=== PATIENT | male | born 1955 | race Caucasian/White ===

== ENCOUNTER 2018-02-17 13:13 | Inpatient (IN) ==
[2018-02-17] MEDS ORDERED: Sod Chloride 0.9% Inj 1,000 ML IV.SIG SCH (14:15)
[2018-02-17 14:37] LABS: Baso # (Auto) 0.1 th/mm3 (0.0-0.2); Baso % (Auto) 0.7 % (0.0-2.0); Eos # (Auto) 0.3 th/mm3 (0.0-0.4); Eos % (Auto) 1.8 % (0.0-4.0); Hematocrit 44.7 % (39.0-51.0); Lymph # (Auto) 2.2 th/mm3 (1.0-4.8); Lymph % (Auto) 15.5 % (9.0-44.0); Mean Corpuscular HGB Conc 33.6 % (32.0-36.0); Mean Corpuscular Hemoglobin 30.4 pg (27.0-34.0); Mean Corpuscular Volume 90.3 fL (80.0-100.0); Mean Platelet Volume 8.8 fL (7.0-11.0); Mono # (Auto) 1.1 th/mm3 (0.0-0.9); Neut # (Auto) 10.5 th/mm3 (1.8-7.7); Platelet Count 265 th/mm3 (150-450); Red Blood Count 4.94 mil/mm3 (4.50-5.90); Red Cell Distribution Width 13.3 % (11.6-17.2); White Blood Count 14.2 th/mm3 (4.0-11.0)
[2018-02-17 14:50] LABS: Prothrombin Time 10.5 sec (9.8-11.6)
--- NOTE | 2018-02-17 14:54 | ED ---
HPI General Chief complaint: Skin/Abscess/Foreign Body Stated complaint: Post Op Complication Time Seen by Provider: 02/17/18 14:06 Source: patient Mode of arrival: ambulatory Limitations: no limitations History of Present Illness HPI narrative: 62-year-old male with a history of hypertension, chronic headaches presents to the emergency department for evaluation of swelling to the left neck that has worsened since Sunday. Patient says he had a squamous cell carcinoma lesion removed from his left neck Sunday morning and started developing swelling that day. Says today the swelling is increased and his noticed his left ear was also swelling. There were advised to go to a walk-in clinic in the walk-in clinic advised to come to the emergency department for further evaluation. He denies fevers, chills, shortness of breath, chest pain. Says he has difficulty completely opening his mouth because of the swelling. Denies exudate from the area. His pain is mild and nonradiating. Denies stiff neck but does have difficulty moving his neck because of the swelling. MD complaint: other Onset (ago): day(s) Location: neck Severity: mild Quality: aching Pain Consistency: constant Relieving factors: none Exacerbating factors: none Context: none Associated symptoms: denies other symptoms Treatments prior to arrival: other (Tylenol this morning) Related Data Home Medications Medication Instructions Recorded Confirmed amitriptyline mg PO DAILY 02/17/18 Allergies Allergy/AdvReac Type Severity Reaction Status Date / Time penicillin G Allergy Severe RASH Verified 02/17/18 18:32 Review of Systems ROS: all other systems reviewed are negative [facility] Medical History Medical History Carpal tunnel syndrome of left wrist (Acute) Carpal tunnel syndrome of right wrist (Acute) Chronic headaches (Acute) HTN (hypertension) (Acute) History of torn meniscus of left knee (Acute) Squamous cell carcinoma of neck (Acute) Surgical History Surgical History H/O prostatectomy (Acute) Hx of tonsillectomy (Acute) Social History Social History Substance History: No History of Abuse Second Hand Smoke Exposure: No Smoking Status: Never smoker How Often Do You Have a Drink Containing Alcohol: Monthly or less Recent Travel in [facility] within the Last 8 Weeks: No Recent Out of Country Travel within the Last 8 Weeks: No Immunization History Tetanus Immunization: Unsure Hx Influenza Vaccine This Season: No Exam Narrative Exam Narrative: GENERAL: WD, Wn in NAD SKIN: Focused skin assessment warm/dry. HEAD: Atraumatic. Normocephalic. EYES: Pupils equal and round. No scleral icterus. No injection or drainage. ENT: No nasal bleeding or discharge. Mucous membranes pink and moist. NECK: Trachea midline. No JVD. left neck- edematous with erythema surrounding incision site steristrips in place, no obvious discharge or exudate. No fluctuance but 4cm round area of induration, mobile mass CARDIOVASCULAR: Regular rate and rhythm. No murmur appreciated. RESPIRATORY: No accessory muscle use. Clear to auscultation. Breath sounds equal bilaterally. GASTROINTESTINAL: Abdomen soft, non-tender, nondistended. Hepatic and splenic margins not palpable. MUSCULOSKELETAL: No obvious deformities. No clubbing. No cyanosis. No edema. NEUROLOGICAL: Awake and alert. No obvious cranial nerve deficits. Motor grossly within normal limits. Normal speech. PSYCHIATRIC: Appropriate mood and affect; insight and judgment normal. Course Initial Documented Vital Signs Temperature 98.8 F 02/17/18 13:24 Pulse Rate 105 H 02/17/18 13:24 Respiratory Rate 20 02/17/18 13:24 Blood Pressure 159/84 H 02/17/18 13:24 Pulse Oximetry 98 02/17/18 13:24 Last Documented Vital Signs Temperature 98.8 F 02/17/18 13:24 Pulse Rate 88 02/17/18 19:55 Respiratory Rate 16 02/17/18 19:55 Blood Pressure 122/68 02/17/18 19:55 Pulse Oximetry 98 02/17/18 18:16 Medical Decision Making [facility] Narrative Medical decision making narrative: 62y male presents to the ED with a mass to the left neck that has worsened since his excisional biopsy Sunday. Sepsis workup ordered as patient has tachycardia and there is concern for worsening infection since Sunday. CT is concerning for developing abscess versus hematoma. Because patient does have elevated white blood cell count of 14.2, will treat for abscess. Patient will be admitted for evaluation and potential draining of the abscess/hematoma. Initiated clindamycin 600 mg. Morphine 4 mg IV for pain- patient says Lortab works better for his pain, administered ILO morphine. I spoke with Dr. Roach who requested I determine which specialist to consult. I spoke with Dr. Feliz about this patient and he advised to consult maxillofacial or general surgery. My attending spoke with the admitting physician and patient will likely be evaluated by maxillofacial tomorrow. Medical Screen Exam Complete: Yes Emergency Medical Condition: Yes Differential Diagnosis Differential Diagnosis: sepsis, abscess, cellulitis, Ludwigs angina Medical Records Medical records reviewed: Yes I reviewed the patient's medical records. Stress test performed May 2015 normal. Cardiac work up negative. CTA 2014 showed RLL mass. Lab Data Result diagrams: 02/17/18 14:19 02/17/18 14:19 Lab Results 02/17/18 02/17/18 02/17/18 Range/Units 14:19 14:19 14:19 WBC 14.2 H (4.0-11.0) th/mm3 RBC 4.94 (4.50-5.90) mil/mm3 Hgb 15.0 (13.0-17.0) gm/dL Hct 44.7 (39.0-51.0) % MCV 90.3 (80.0-100.0) fL MCH 30.4 (27.0-34.0) pg MCHC 33.6 (32.0-36.0) % RDW 13.3 (11.6-17.2) % Plt Count 265 (150-450) th/mm3 MPV 8.8 (7.0-11.0) fL Neut % (Auto) 74.0 H (16.0-70.0) % Lymph % (Auto) 15.5 (9.0-44.0) % Travis % (Auto) 8.0 (0.0-8.0) % Eos % (Auto) 1.8 (0.0-4.0) % Baso % (Auto) 0.7 (0.0-2.0) % Neut # (Auto) 10.5 H (1.8-7.7) th/mm3 Lymph # (Auto) 2.2 (1.0-4.8) th/mm3 Travis # (Auto) 1.1 H (0.0-0.9) th/mm3 Eos # (Auto) 0.3 (0.0-0.4) th/mm3 Baso # (Auto) 0.1 (0.0-0.2) th/mm3 WBC Differential . Differential Comment Auto diff final PT 10.5 (9.8-11.6) sec INR 1.0 Ratio APTT 28.0 (24.3-30.1) sec Sodium 140 (136-145) meq/L Potassium 4.2 (3.5-5.1) meq/L Chloride 102 (98-107) meq/L Carbon Dioxide 30.2 (21.0-32.0) meq/L Anion Gap 8 (5-15) meq/L BUN 12 (7-18) mg/dL Creatinine 1.09 (0.60-1.30) mg/dL Estimated GFR 69 L (>89) mL/min Random Glucose 91 (74-106) mg/dL Lactic Acid (0.4-2.0) mmol/L Calcium 9.2 (8.5-10.1) mg/dL Total Bilirubin 0.8 (0.2-1.0) mg/dL AST 13 L (15-37) U/L ALT 22 (12-78) U/L Alkaline Phosphatase 87 (45-117) U/L Total Protein 8.3 H (6.4-8.2) g/dL Albumin 3.9 (3.4-5.0) g/dL Urine Color (Yellw/Straw) Urine Clarity (Clear) Urine pH (5.0-8.5) Ur Specific [place] (1.002-1.035) Urine Protein (Neg-Trace) mg/dL Urine Glucose (UA) (Negative) mg/dL Urine Ketones (Negative) mg/dL Urine Occult Blood (Negative) Urine Nitrate (Negative) Urine Bilirubin (Negative) Urine Urobilinogen (Less than 2) mg/dL Ur Leukocyte Esterase (Negative) Urine RBC (0-3) /hpf Urine WBC (0-5) /hpf Urine Mucus (Occasional) /lpf Micro UA Comment Ur Microscopic Review Urine Culture Comments 02/17/18 02/17/18 Range/Units 14:19 18:06 WBC (4.0-11.0) th/mm3 RBC (4.50-5.90) mil/mm3 Hgb (13.0-17.0) gm/dL Hct (39.0-51.0) % MCV (80.0-100.0) fL MCH (27.0-34.0) pg MCHC (32.0-36.0) % RDW (11.6-17.2) % Plt Count (150-450) th/mm3 MPV (7.0-11.0) fL Neut % (Auto) (16.0-70.0) % Lymph % (Auto) (9.0-44.0) % Travis % (Auto) (0.0-8.0) % Eos % (Auto) (0.0-4.0) % Baso % (Auto) (0.0-2.0) % Neut # (Auto) (1.8-7.7) th/mm3 Lymph # (Auto) (1.0-4.8) th/mm3 Travis # (Auto) (0.0-0.9) th/mm3 Eos # (Auto) (0.0-0.4) th/mm3 Baso # (Auto) (0.0-0.2) th/mm3 WBC Differential Differential Comment PT (9.8-11.6) sec INR Ratio APTT (24.3-30.1) sec Sodium (136-145) meq/L Potassium (3.5-5.1) meq/L Chloride (98-107) meq/L Carbon Dioxide (21.0-32.0) meq/L Anion Gap (5-15) meq/L BUN (7-18) mg/dL Creatinine (0.60-1.30) mg/dL Estimated GFR (>89) mL/min Random Glucose (74-106) mg/dL Lactic Acid 1.1 (0.4-2.0) mmol/L Calcium (8.5-10.1) mg/dL Total Bilirubin (0.2-1.0) mg/dL AST (15-37) U/L ALT (12-78) U/L Alkaline Phosphatase (45-117) U/L Total Protein (6.4-8.2) g/dL Albumin (3.4-5.0) g/dL Urine Color Yellow (Yellw/Straw) Urine Clarity Clear (Clear) Urine pH 7.0 (5.0-8.5) Ur Specific [place] 1.055 H (1.002-1.035) Urine Protein Negative (Neg-Trace) mg/dL Urine Glucose (UA) Negative (Negative) mg/dL Urine Ketones Negative (Negative) mg/dL Urine Occult Blood Negative (Negative) Urine Nitrate Negative (Negative) Urine Bilirubin Negative (Negative) Urine Urobilinogen Less than 2 (Less than 2) mg/dL Ur Leukocyte Esterase Negative (Negative) Urine RBC Less than 1 (0-3) /hpf Urine WBC Less than 1 (0-5) /hpf Urine Mucus Few H (Occasional) /lpf Micro UA Comment Culture not ind Ur Microscopic Review Not Reportable Urine Culture Comments Culture not ind Imaging Data Radiologist's impression: Soft Tissue Neck CT 02/17/18 14:06 CONCLUSION: 1. 4.5 cm subcutaneous complex collection in the left neck caudal and posterior to the left parotid gland most characteristic of a postsurgical hematoma or developing abscess. 2. Centimeter lymph nodes are identified in the internal jugular and left submandibular regions. 3. No other significant abnormality. Discharge Plan Discharge Disposition Patient Disposition: 30 Still Patient Discharge Condition Condition: Stable Discharge Details Diagnosis: Post-operative complication, Localized swelling, mass or lump of neck Physicians Team ED Provider: Arleth Vasquez ED Midlevel Provider: Patrizia Krause Primary Care Provider: Toney Mcclain Attending Provider: Jeremías Yadav Other Providers: Kai Feliz Status ED Status: Admitted Observation Patient
[2018-02-17 14:59] LABS: Alanine Aminotransferase 22 U/L (12-78); Albumin 3.9 g/dL (3.4-5.0); Anion Gap 8 meq/L (5-15); Aspartate Aminotransferase 13 U/L (15-37); Blood Urea Nitrogen 12 mg/dL (7-18); Calcium 9.2 mg/dL (8.5-10.1); Carbon Dioxide 30.2 meq/L (21.0-32.0); Chloride 102 meq/L (98-107); Glomerular Filtration Rate 69 mL/min (>89); Glucose,Random 91 mg/dL (74-106); Potassium 4.2 meq/L (3.5-5.1); Sodium 140 meq/L (136-145)
[2018-02-17 15:01] LABS: Alkaline Phosphatase 87 U/L (45-117); Total Protein 8.3 g/dL (6.4-8.2)
--- NOTE | 2018-02-17 17:23 | CT ---
EXAM DATE: 02/17/2018 4:23 PM EDT AGE/SEX: 62 years / Male INDICATIONS: Cancer removed from left side of neck behind the left ear 4 days ago, Patient c/o pain and swelling CLINICAL DATA: This is the patient's initial encounter. Patient reports that signs and symptoms have been present for 2 days and indicates a pain score of 8/10. MEDICAL/SURGICAL HISTORY: Hypertension. Carcinoma, prostatic. Tonsillectomy. RADIATION DOSE: 14.36 CTDI (mGy) COMPARISON: No prior exams available for comparison. TECHNIQUE: Helical acquisition was performed using a multirow detector CT scanner during the adminis tration of 70ML ml Omnipaque 350 (iohexol) nonionic water-soluble contrast as a single exam dose. U sing automated exposure control and adjustment of the mA and/or kV according to patient size, radiati on dose was kept as low as reasonably achievable to obtain optimal diagnostic quality images. DICOM format image data is available electronically for review and comparison. FINDINGS: Caudal and posterior to the left parotid gland there is a complex partially cystic mass measuring 2.6 x 2.1 x 4.5 cm in size. The mass is along the lateral margin of the left sternocleidomastoid muscle and causes inward effacement of the muscle. There is overlying skin thickening and subcutaneous fat i nduration. Small air bubbles with air fluid levels are identified both along the inferior and inferio r margins of the mass. Focal thickening is identified surrounding the parotid gland however there is no deep parotid infiltration. The left sternocleidomastoid muscle is inflamed and enlarged. Nasopharynx: The nasopharyngeal airway has a normal configuration. No mucosal thickening or mass is seen. Oropharynx: The intrinsic muscles of the tongue are symmetric. The tonsillar pillars are intact. T he prevertebral soft tissues are not thickened. Larynx: The supraglottic, glottic, and infraglottic structures are intact. Parapharyngeal: The parapharyngeal space is intact. Salivary Glands: The right parotid gland and submandibular glands are intact. Lymph Nodes: Scattered centimeter lymph nodes are seen along both internal jugular chains and in the left submandibular region. No significantly enlarged or necrotic-appearing nodes. Thyroid: Homogeneous enhancement without evidence of nodule. Bones: Unremarkable. CONCLUSION: 1. 4.5 cm subcutaneous complex collection in the left neck caudal and posterior to the left parotid gland most characteristic of a postsurgical hematoma or developing abscess. 2. Centimeter lymph nodes are identified in the internal jugular and left submandibular regions. 3. No other significant abnormality. Electronically signed by: Jhonatan Jamil MD 02/17/2018 5:21 PM EDT
[2018-02-17] MEDS ORDERED: Morphine Inj 4 MG/ML Vial IV.PUSH ONE (17:41)
[2018-02-17] MEDS ORDERED: Clindamycin 600 mg/NS Premix 600 MG/50 ML PIGGYBACK IV.SIG ONE (17:41)
[2018-02-17 18:59] LABS: Bilirubin,Urine Negative (Negative); Clarity,Urine Clear (Clear); Color,Urine Yellow (Yellw/Straw); Glucose,Urine (UA) Negative (Negative); Leukocyte Esterase,Urine Negative (Negative); Mucus,Urine Few /lpf (Occasional); Nitrite,Urine Negative (Negative); Specific Gravity,Urine 1.055 (1.002-1.035)
[2018-02-17] MEDS ORDERED: Acetaminophen 325 MG Tablet PO PRN ×2 (19:55→19:58)
[2018-02-17] MEDS ORDERED: Bisacodyl 10 MG Supp RECTAL PRN (19:55)
--- NOTE | 2018-02-17 19:55 | P.HPFP ---
History of Present Illness Primary Care Physician: Dr. Deneen MD History of Present Illness: This is a pleasant 62-year-old male with a history of hypertension, chronic headaches who presents to the emergency department for evaluation of swelling to the left neck beginning 5 days prior. 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 This morning he noticed his left ear was also swelling, so he presented to the ER. He does take a baby aspirin a day. He denies any difficulty swallowing or drooling. Denies any pain to the jaw or neck. Denies any fever, or drainage from the incision. - Diagnosis (1) Post-operative complication (2) Localized swelling, mass or lump of neck Review of Systems All other systems reviewed negative except as stated [facility] - History History Provided By: Patient - Medical History Medical History: Medical History (Last Updated 02/18/18 @ 00:51 by Nancy Chau MD) Carpal tunnel syndrome of left wrist Carpal tunnel syndrome of right wrist Chronic headaches H/O prostate cancer HLD (hyperlipidemia) HTN (hypertension) History of torn meniscus of left knee Squamous cell carcinoma of neck - Surgical History Surgical History: Surgical History (Last Updated 02/18/18 @ 00:52 by Nancy Chau MD) H/O prostatectomy History of arthroscopic knee surgery Hx of tonsillectomy - Tobacco History Second Hand Smoke Exposure: No Tobacco Use In Past 30 Days: No Smoking Status: Never smoker - Alcohol History How Often Do You Have a Drink Containing Alcohol: Monthly or less - Substance Use History Substance History: No History of Abuse - Travel History Recent Travel in the [place] Within the Last 8 Weeks: No Recent Travel Out of the Country Within the Last 8 Weeks: No - Immunization History Tetanus Immunization: Unsure Hx Influenza Vaccine This Season: No Medications and Allergies Active Medications: Active Medications Clindamycin/Sodium Chloride (Cleocin 600 Mg/Ns Premix) 600 mg IV.SIG Q6H MARGARITA Sodium Chloride (Ns Inj) 1,000 mls @ 0 mls/hr IV.SIG BOLUS MARGARITA Last Admin: 02/17/18 18:15 Dose: 1,000 mls/hr Allergies Allergy/AdvReac Type Severity Reaction Status Date / Time penicillin G Allergy Severe RASH Verified 02/17/18 18:32 Home Medications Medication Instructions Recorded Confirmed Type amitriptyline mg PO DAILY 02/17/18 History Exam Vital signs: Vital Signs 02/17/18 13:24 02/17/18 14:06 02/17/18 14:11 Temperature 98.8 F Pulse Rate 105 H 105 H 102 H Respiratory Rate 20 18 20 Blood Pressure 159/84 H 137/76 141/78 H Pulse Oximetry 98 98 98 02/17/18 18:16 Temperature Pulse Rate 100 H Respiratory Rate 18 Blood Pressure 133/67 Pulse Oximetry 98 Intake & Output 02/17/18 02/17/18 02/18/18 06:59 18:59 06:59 Intake Total 50 / 50 Balance 50 / 50 Weight 81.647 kg Intake: IV 50 / 50 Cleocin 600 mg/NS Premix 600 mg 50 / 50 In 50 ml @ 100 mls/hr IV.SIG ONCE ONE Rx#:[id number] Narrative: Gen:Pleasant male in NAD. Skin: he has a large area of induration around the left TMJ extending to posterior neck, incision is c/d/i, minimal flucutance and erythema, no drainage from the incision, area is nontender. ENT: OP widely patent, no drooling. he has edema of the left ear. Moist mucous membranes Eyes: EOMI, no conjunctival injection or icterus. CV: RRR, no murmurs. no pedal edema. dorsalis pedis and radial pulses 2+ and equal b/l. Lungs: CTAB. No respiratory distress. Abdomen: soft, nontender, nondistended. no masses. Extremities: warm and dry. tattoo rle. no joint effusions. Neuro: alert and oriented, cognitively sharp, face symmetric, speech normal. Psych: normal mood, affect and insight. Results - Labs Result diagrams: 02/17/18 14:19 02/17/18 14:19 Abnormal lab results 02/17/18 02/17/18 02/17/18 Range/Units 14:19 14:19 18:06 WBC 14.2 H (4.0-11.0) th/mm3 Neut % (Auto) 74.0 H (16.0-70.0) % Neut # (Auto) 10.5 H (1.8-7.7) th/mm3 [place] # (Auto) 1.1 H (0.0-0.9) th/mm3 Estimated GFR 69 L (>89) mL/min AST 13 L (15-37) U/L Total Protein 8.3 H (6.4-8.2) g/dL Ur Specific [place] 1.055 H (1.002-1.035) Urine Mucus Few H (Occasional) /lpf Short CBC 02/17/18 Range/Units 14:19 WBC 14.2 H (4.0-11.0) th/mm3 Hgb 15.0 (13.0-17.0) gm/dL Hct 44.7 (39.0-51.0) % Plt Count 265 (150-450) th/mm3 BMP 02/17/18 14:19 Sodium 140 Potassium 4.2 Chloride 102 Carbon Dioxide 30.2 BUN 12 Creatinine 1.09 Calcium 9.2 Liver Function 02/17/18 Range/Units 14:19 Total Bilirubin 0.8 (0.2-1.0) mg/dL AST 13 L (15-37) U/L ALT 22 (12-78) U/L Alkaline Phosphatase 87 (45-117) U/L Albumin 3.9 (3.4-5.0) g/dL Urine 02/17/18 Range/Units 18:06 Urine Color Yellow (Yellw/Straw) Urine Clarity Clear (Clear) Urine pH 7.0 (5.0-8.5) Ur Specific [place] 1.055 H (1.002-1.035) Urine Protein Negative (Neg-Trace) mg/dL Urine Glucose (UA) Negative (Negative) mg/dL - Imaging Impressions Soft Tissue Neck CT 02/17/18 14:06 CONCLUSION: 1. 4.5 cm subcutaneous complex collection in the left neck caudal and posterior to the left parotid gland most characteristic of a postsurgical hematoma or developing abscess. 2. Centimeter lymph nodes are identified in the internal jugular and left submandibular regions. 3. No other significant abnormality. Caprini VTE Risk Assessment Caprini VTE Risk Assessment: No/Low Risk (score <= 1) Caprini Risk Assessment Model: Point Value = 1 Point Value = 2 Point Value = 3 Point Value = 5 Age 41-60 Minor surgery BMI > 25 kg/m2 Swollen legs Varicose veins or History of unexplained or recurrent spontaneous Oral contraceptives or hormone replacement Sepsis (< 1 month) Serious lung disease, including pneumonia (< 1 month) Abnormal pulmonary function Acute myocardial infarction Congestive heart failure (< 1 month) History of inflammatory bowel disease Medical patient at bed rest Age 61-74 Arthroscopic surgery Major open surgery (> 45 min) Laparoscopic surgery (> 45 min) Malignancy Confined to bed (> 72 hours) Immobilizing plaster cast Central venous access Age >= 75 History of VTE Family history of VTE Factor V Leiden Prothrombin [id number] Lupus anticoagulant Anticardiolipin antibodies Elevated serum homocysteine Heparin-induced thrombocytopenia Other congenital or acquired thrombophilia Stroke (< 1 month) Elective arthroplasty Hip, pelvis, or leg fracture Acute spinal cord injury (< 1 month) Prophylaxis Regimen: Total Risk Factor Score Risk Level Prophylaxis Regimen 0-1 Low Early ambulation 2 Moderate Order ONE of the following: *Sequential Compression Device (SCD) *Heparin 5000 units SQ BID 3-4 Higher Order ONE of the following medications: *Heparin 5000 units SQ TID *Enoxaparin/Lovenox 40 mg SQ daily (WT < 150 kg, CrCl > 30 mL/min) *Enoxaparin/Lovenox 30 mg SQ daily (WT < 150 kg, CrCl > 10-29 mL/min) *Enoxaparin/Lovenox 30 mg SQ BID (WT < 150 kg, CrCl > 30 mL/min) AND/OR *Sequential Compression Device (SCD) 5 or more Highest Order ONE of the following medications: *Heparin 5000 units SQ TID (Preferred with Epidurals) *Enoxaparin/Lovenox 40 mg SQ daily (WT < 150 kg, CrCl > 30 mL/min) *Enoxaparin/Lovenox 30 mg SQ daily (WT < 150 kg, CrCl > 10-29 mL/min) *Enoxaparin/Lovenox 30 mg SQ BID (WT < 150 kg, CrCl > 30 mL/min) AND *Sequential Compression Device (SCD) Assessment and Plan - Assessment (1) Post-operative complication Code(s): T81.9XXA - Unspecified complication of procedure, initial encounter Status: Acute (2) Localized swelling, mass or lump of neck Code(s): R22.1 - Localized swelling, mass and lump, neck Status: Acute - Assessment and Plan Abscess versus hematoma. Continue clindamycin IV. Consult maxillofacial surgery. Follow CBC. Clear liquids. Hold aspirin. Resume his other home medications. SCDs for DVT prophylaxis. (1) Post-operative complication Qualifiers: Surgical complication system/body Area: subcutaneous tissue Surgical complication type: unspecified Procedure type: dermatologic Qualified Code(s) : L76.82 - Other postprocedural complications of skin and subcutaneous tissue
[2018-02-17] MEDS ORDERED: Morphine Inj 4 MG/ML Vial IV.PUSH PRN (19:58)
[2018-02-17] MEDS ORDERED: Naloxone Inj 0.4 MG/ML Vial IV.PUSH PRN (19:58)
--- NOTE | 2018-02-17 20:20 | ECG ---
Date Performed: 02/17/2018 Time Performed: 14:37:15 PTAGE: 62 years EKG: Sinus rhythm INCOMPLETE RIGHT BUNDLE BRANCH BLOCK LEFT ANTERIOR FASCICULAR BLOCK ABNORMAL ECG PREVIOUS TRACING : 05/30/2015 23.54 Since the previous tracing, no significant change noted DOCTOR: Awais García Interpretating Date/Time 02/17/2018 20:18:51
[2018-02-17] MEDS: CLINDAMYCIN IV.SIG SCH (23:33)
[2018-02-17] MEDS: NS IV.SIG SCH (23:33)
[2018-02-18] MEDS: NS IV.SIG SCH ×3 (05:20→19:49)
[2018-02-18] MEDS: CLINDAMYCIN IV.SIG SCH ×3 (05:20→19:49)
[2018-02-18 08:53] LABS: Baso # (Auto) 0.1 th/mm3 (0.0-0.2); Baso % (Auto) 0.5 % (0.0-2.0); Eos # (Auto) 0.3 th/mm3 (0.0-0.4); Hematocrit 41.1 % (39.0-51.0); Hemoglobin 14.5 gm/dL (13.0-17.0); Lymph % (Auto) 15.6 % (9.0-44.0); Mean Corpuscular HGB Conc 35.4 % (32.0-36.0); Mean Corpuscular Volume 87.7 fL (80.0-100.0); Mono # (Auto) 0.9 th/mm3 (0.0-0.9); Mono % (Auto) 7.2 % (0.0-8.0); Neut # (Auto) 9.6 th/mm3 (1.8-7.7); Neut % (Auto) 74.7 % (16.0-70.0); Platelet Count 233 th/mm3 (150-450); Red Blood Count 4.69 mil/mm3 (4.50-5.90); Red Cell Distribution Width 13.2 % (11.6-17.2); White Blood Count 12.9 th/mm3 (4.0-11.0)
[2018-02-18 09:13] LABS: Calcium 8.4 mg/dL (8.5-10.1); Carbon Dioxide 26.4 meq/L (21.0-32.0); Potassium 4.2 meq/L (3.5-5.1)
--- NOTE | 2018-02-18 09:18 | P.PNIM ---
Subjective Interval history: Pt reports some drainage of bloody, foul smelling fluid from the incision last night Pt has been afebrile Tolerating liquids without difficulty Physical Exam Vital signs: Vital Signs 02/17/18 13:24 02/17/18 14:06 02/17/18 14:11 Temperature 98.8 F Pulse Rate 105 H 105 H 102 H Respiratory Rate 20 18 20 Blood Pressure 159/84 H 137/76 141/78 H Pulse Oximetry 98 98 98 02/17/18 18:16 02/17/18 19:55 02/17/18 22:37 Temperature 98.8 F Pulse Rate 100 H 88 91 H Respiratory Rate 18 16 18 Blood Pressure 133/67 122/68 109/60 Pulse Oximetry 98 96 02/18/18 00:00 02/18/18 08:00 Temperature 98.1 F 98.4 F Pulse Rate 82 89 Respiratory Rate 18 18 Blood Pressure 122/68 115/63 Pulse Oximetry 95 97 Intake & Output 02/17/18 02/18/18 02/18/18 18:59 06:59 18:59 Intake Total 50 / 50 1000 / 1000 Balance 50 / 50 1000 / 1000 Weight 81.647 kg 81.4 kg Intake: IV 50 / 50 1000 / 1000 Cleocin 600 mg/NS Premix 600 mg 50 / 50 In 50 ml @ 100 mls/hr IV.SIG ONCE ONE Rx#:[id number] NS Inj 1,000 ML @ Wide Open IV. 1000 / 1000 SIG BOLUS MARGARITA Rx#:[id number] Other: Weight On Admission 82.024 kg Narrative: GENERAL: NAD, AAOx3 SKIN: Large area of induration around the left TMJ extending to posterior neck, incision with steri strip in place, minimal fluctuance and erythema, some bloody drainage from the incision is dried onto his face and neck. ENT: OP widely patent, no drooling. Edema of the left ear. Moist mucous membranes NECK: Supple, trachea midline. No lymphadenopathy. CARDIO: Regular RESP: Breath sounds equal bilaterally. No accessory muscle use. ABD: +BS, soft, non-tender, nondistended. EXT: No cyanosis, or edema. Results - Labs CBC & Chem 7: 02/19/18 03:21 02/19/18 03:21 Laboratory Results - last 24 hr 02/17/18 02/17/18 02/17/18 14:19 14:19 14:19 WBC 14.2 H RBC 4.94 Hgb 15.0 Hct 44.7 MCV 90.3 MCH 30.4 MCHC 33.6 RDW 13.3 Plt Count 265 MPV 8.8 Neut % (Auto) 74.0 H Lymph % (Auto) 15.5 [place] % (Auto) 8.0 Eos % (Auto) 1.8 Baso % (Auto) 0.7 Neut # (Auto) 10.5 H Lymph # (Auto) 2.2 [place] # (Auto) 1.1 H Eos # (Auto) 0.3 Baso # (Auto) 0.1 WBC Differential . Differential Comment Auto diff final PT 10.5 INR 1.0 APTT 28.0 Sodium 140 Potassium 4.2 Chloride 102 Carbon Dioxide 30.2 Anion Gap 8 BUN 12 Creatinine 1.09 Estimated GFR 69 L Random Glucose 91 Lactic Acid Calcium 9.2 Total Bilirubin 0.8 AST 13 L ALT 22 Alkaline Phosphatase 87 Total Protein 8.3 H Albumin 3.9 Urine Color Urine Clarity Urine pH Ur Specific [place] Urine Protein Urine Glucose (UA) Urine Ketones Urine Occult Blood Urine Nitrate Urine Bilirubin Urine Urobilinogen Ur Leukocyte Esterase Urine RBC Urine WBC Urine Mucus Micro UA Comment Ur Microscopic Review Urine Culture Comments 02/17/18 02/17/18 02/18/18 14:19 18:06 07:47 WBC 12.9 H RBC 4.69 Hgb 14.5 Hct 41.1 MCV 87.7 MCH 31.0 MCHC 35.4 RDW 13.2 Plt Count 233 MPV 9.0 Neut % (Auto) 74.7 H Lymph % (Auto) 15.6 [place] % (Auto) 7.2 Eos % (Auto) 2.0 Baso % (Auto) 0.5 Neut # (Auto) 9.6 H Lymph # (Auto) 2.0 [place] # (Auto) 0.9 Eos # (Auto) 0.3 Baso # (Auto) 0.1 WBC Differential . Differential Comment Auto diff final PT INR APTT Sodium Potassium Chloride Carbon Dioxide Anion Gap BUN Creatinine Estimated GFR Random Glucose Lactic Acid 1.1 Calcium Total Bilirubin AST ALT Alkaline Phosphatase Total Protein Albumin Urine Color Yellow Urine Clarity Clear Urine pH 7.0 Ur Specific [place] 1.055 H Urine Protein Negative Urine Glucose (UA) Negative Urine Ketones Negative Urine Occult Blood Negative Urine Nitrate Negative Urine Bilirubin Negative Urine Urobilinogen Less than 2 Ur Leukocyte Esterase Negative Urine RBC Less than 1 Urine WBC Less than 1 Urine Mucus Few H Micro UA Comment Culture not ind Ur Microscopic Review Not Reportable Urine Culture Comments Culture not ind - Imaging Impressions Soft Tissue Neck CT 02/17/18 14:06 CONCLUSION: 1. 4.5 cm subcutaneous complex collection in the left neck caudal and posterior to the left parotid gland most characteristic of a postsurgical hematoma or developing abscess. 2. Centimeter lymph nodes are identified in the internal jugular and left submandibular regions. 3. No other significant abnormality. Assessment and Plan - Assessment (1) Localized swelling, mass or lump of neck Code(s): R22.1 - Localized swelling, mass and lump, neck Status: Acute Plan: Abscess vs. hematoma on left neck s/p SCC excision on 02/13/18 - Pt is a 62 y/o male with hypertension and chronic headaches who presented to the ED at [facility] [place] on [place]/17/18 for evaluation of swelling to the left neck which began 1 day prior. 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 A few days after the surgery he started noticing swelling which significantly worsened on 02/17. - Pt has been afebrile. - His WBC count at admission was 14.8 - Soft Tissue Neck CT (02/17/18) 1. 4.5 cm subcutaneous complex collection in the left neck caudal and posterior to the left parotid gland most characteristic of a postsurgical hematoma or developing abscess. 2. Centimeter lymph nodes are identified in the internal jugular and left submandibular regions. 3. No other significant abnormality. - Pt was started on Clindamycin IV in the ED - Consult placed to maxillofacial surgery - Pt is tolerating clear liquids - Hold aspirin - Cont. his other home medications - Monitor labs and vitals closely - If there is any noted pus/drainage we will culture it - SCDs for DVT prophylaxis. (2) Post-operative complication Code(s): T81.9XXA - Unspecified complication of procedure, initial encounter Status: Acute - Attending Attestation Patient examined. Assessment and plan formulated with Crystal Manzano PA-C. I agree with the above. (2) Post-operative complication Qualifiers: Surgical complication system/body Area: subcutaneous tissue Surgical complication type: unspecified Procedure type: dermatologic Qualified Code(s) : L76.82 - Other postprocedural complications of skin and subcutaneous tissue
[2018-02-18] MEDS: Clindamycin 600 mg/NS Premix 600 MG/50 ML PIGGYBACK IV.SIG SCH (19:43)
[2018-02-18] MEDS: Amitriptyline 10 MG Tablet PO SCH (20:33)
[2018-02-19] MEDS ORDERED: Clindamycin 600 mg/NS Premix 600 MG/50 ML PIGGYBACK IV.SIG SCH
[2018-02-19] MEDS: Clindamycin 600 mg/NS Premix 600 MG/50 ML PIGGYBACK IV.SIG SCH ×4 (00:50→18:08)
[2018-02-19 05:03] LABS: Baso # (Auto) 0.1 th/mm3 (0.0-0.2); Eos # (Auto) 0.4 th/mm3 (0.0-0.4); Eos % (Auto) 4.4 % (0.0-4.0); Hematocrit 42.6 % (39.0-51.0); Hemoglobin 14.4 gm/dL (13.0-17.0); Lymph # (Auto) 2.7 th/mm3 (1.0-4.8); Mean Corpuscular HGB Conc 33.7 % (32.0-36.0); Mean Corpuscular Hemoglobin 30.3 pg (27.0-34.0); Mean Corpuscular Volume 89.9 fL (80.0-100.0); Mean Platelet Volume 9.2 fL (7.0-11.0); Mono # (Auto) 0.9 th/mm3 (0.0-0.9); Mono % (Auto) 9.8 % (0.0-8.0); Neut # (Auto) 5.4 th/mm3 (1.8-7.7); Neut % (Auto) 56.8 % (16.0-70.0); Platelet Count 249 th/mm3 (150-450); Red Blood Count 4.74 mil/mm3 (4.50-5.90); Red Cell Distribution Width 13.4 % (11.6-17.2); White Blood Count 9.5 th/mm3 (4.0-11.0)
[2018-02-19 05:32] LABS: Calcium 8.7 mg/dL (8.5-10.1); Carbon Dioxide 24.8 meq/L (21.0-32.0); Potassium 4.2 meq/L (3.5-5.1)
[2018-02-19] MEDS: amLODIPine 5 MG Tablet PO SCH (08:53)
--- NOTE | 2018-02-19 09:13 | P.PNIM ---
Subjective Interval history: Pt had a lot of purulent/bloody drainage from the incision overnight He feels that the swelling is improving. Afebrile Eating and drinking without difficulty Physical Exam Vital signs: Vital Signs 02/18/18 12:00 02/18/18 16:00 02/18/18 20:00 Temperature 98.3 F 98.4 F 98.5 F Pulse Rate 89 94 H 89 Respiratory Rate 18 18 18 Blood Pressure 133/65 127/66 136/68 Pulse Oximetry 97 95 95 02/19/18 00:00 02/19/18 07:45 Temperature 97.8 F 97.9 F Pulse Rate 79 78 Respiratory Rate 18 18 Blood Pressure 130/69 126/73 Pulse Oximetry 95 97 Intake & Output 02/18/18 02/19/18 02/19/18 18:59 06:59 18:59 Intake Total 860 / 860 150 / 150 Balance 860 / 860 150 / 150 Weight 81.2 kg Intake: IV 150 / 150 Cleocin 600 mg/NS Premix 600 mg 150 / 150 In 50 ml @ 100 mls/hr IV.SIG Q6H MARGARITA Rx#:[id number] Oral 860 / 860 Other: # Voids 5 2 Narrative: GENERAL: NAD, AAOx3 SKIN: Induration around the left TMJ, incision with steri strip in place, fluctuance and erythema, purulent/bloody drainage from the incision ENT: OP widely patent, no drooling. Edema of the left ear has lessened. Moist mucous membranes NECK: Supple, trachea midline. No lymphadenopathy. CARDIO: Regular RESP: Breath sounds equal bilaterally. No accessory muscle use. ABD: +BS, soft, non-tender, nondistended. EXT: No cyanosis, or edema. Results - Labs CBC & Chem 7: 02/19/18 03:21 02/19/18 03:21 Laboratory Results - last 24 hr 02/18/18 02/19/18 02/19/18 07:47 03:21 03:21 WBC 9.5 RBC 4.74 Hgb 14.4 Hct 42.6 MCV 89.9 MCH 30.3 MCHC 33.7 RDW 13.4 Plt Count 249 MPV 9.2 Neut % (Auto) 56.8 Lymph % (Auto) 28.0 [place] % (Auto) 9.8 H Eos % (Auto) 4.4 H Baso % (Auto) 1.0 Neut # (Auto) 5.4 Lymph # (Auto) 2.7 [place] # (Auto) 0.9 Eos # (Auto) 0.4 Baso # (Auto) 0.1 WBC Differential . Differential Comment Auto diff final Sodium 138 140 Potassium 4.2 4.2 Chloride 103 104 Carbon Dioxide 26.4 24.8 Anion Gap 9 11 BUN 15 15 Creatinine 0.96 0.97 Estimated GFR 79 L 78 L Random Glucose 90 90 Calcium 8.4 L D 8.7 Microbiology 02/17/18 14:15 Blood - Peripheral Aerobic Blood Culture - Preliminary No growth in 1 day 02/17/18 14:15 Blood - Peripheral Anaerobic Blood Culture - Preliminary No growth in 1 day 02/17/18 14:10 Blood - Peripheral Aerobic Blood Culture - Preliminary No growth in 1 day 02/17/18 14:10 Blood - Peripheral Anaerobic Blood Culture - Preliminary No growth in 1 day - Imaging Soft Tissue Neck CT 02/17/18 14:06 CONCLUSION: 1. 4.5 cm subcutaneous complex collection in the left neck caudal and posterior to the left parotid gland most characteristic of a postsurgical hematoma or developing abscess. 2. Centimeter lymph nodes are identified in the internal jugular and left submandibular regions. 3. No other significant abnormality. Assessment and Plan - Assessment (1) Localized swelling, mass or lump of neck Code(s): R22.1 - Localized swelling, mass and lump, neck Status: Acute Plan: Abscess vs. hematoma on left neck s/p SCC excision on 02/13/18 - Pt is a 62 y/o male with hypertension and chronic headaches who presented to the ED at [facility] [place] on 02/17/18 for evaluation of swelling to the left neck which began 1 day prior. 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 A few days after the surgery he started noticing swelling which significantly worsened on 02/17. - Pt has been afebrile. - His WBC count at admission was 14.8 - Soft Tissue Neck CT (02/17/18) 1. 4.5 cm subcutaneous complex collection in the left neck caudal and posterior to the left parotid gland most characteristic of a postsurgical hematoma or developing abscess. 2. Centimeter lymph nodes are identified in the internal jugular and left submandibular regions. 3. No other significant abnormality. - Pt was started on Clindamycin IV in the ED - Consult was placed to maxillofacial surgery. The case was discussed between Dr. Yadav and Dr. Wood as well as Dr. Crowell on 02/18/18 and it was not felt to be appropriate for maxillofacial or plastics per that conversation and recommendation was made to place consult to ENT. The consult was placed to Dr. Ravi Soliz and the case was discussed between he and Dr. Yadav on 02/18/18. Awaiting evaluation by ENT - Pt is regular diet - Hold aspirin - Cont. his other home medications - Monitor labs and vitals closely - Wound culture is pending. - SCDs for DVT prophylaxis. (2) Post-operative complication Code(s): T81.9XXA - Unspecified complication of procedure, initial encounter Status: Acute - Attending Attestation Patient examined. Assessment and plan formulated with Crystal Manzano PA-C. I agree with the above. (2) Post-operative complication Qualifiers: Surgical complication system/body Area: subcutaneous tissue Surgical complication type: unspecified Procedure type: dermatologic Qualified Code(s) : L76.82 - Other postprocedural complications of skin and subcutaneous tissue
--- NOTE | 2018-02-19 12:37 | MB ---
cc: Ravi Soliz MD DATE: 02/19/2018 CHIEF COMPLAINT: Left facial abscess. HISTORY OF PRESENT ILLNESS: The patient is a pleasant 62-year-old male who underwent removal of a left squamous cell carcinoma of the left face by Dr. Randi Garcia, a bread oven operator, last Sunday. He was noted to have swelling and abscess formation. He was admitted. He was put on antibiotics and it has gone down well over 50% over the last 24-36 hours. I got called to further evaluate it. The wound has been draining posteriorly. PHYSICAL EXAMINATION: HEENT: On evaluation, the patient has a left facial swelling in the parotid area superficially where the skin cancer was removed. Sutures are intact. Facial nerve appeared to be intact. PROCEDURE: There area was numbed with 1% lidocaine with epinephrine at the area of maximal fluctuance. Wound was explored and an 18-gauge needle with a syringe was used to evacuate roughly 3 mL of serous fluid. The area continued to slowly ooze serous fluid after removing the needle. Pressure was applied for approximately 15 minutes after the procedure with a gauze. RECOMMENDATIONS: I recommend the patient continue the IV antibiotics and after the swelling has gone down substantially, to follow up as an outpatient with Dr. Randi Garcia, his bread oven operator who did the surgery. Ravi Soliz MD [facility]/ , 11:07 AM , 11:15 AM
[2018-02-19] MEDS: Amitriptyline 10 MG Tablet PO SCH (21:04)
[2018-02-20] MEDS: Clindamycin 600 mg/NS Premix 600 MG/50 ML PIGGYBACK IV.SIG SCH ×2 (01:24→05:09)
--- NOTE | 2018-02-20 10:06 | P.PN ---
Subjective Interval history: Follow up: Abscess vs. hematoma on left neck s/p SCC excision on 02/13/18 patient and report that edema and erythema decreasing Patient offers no new concerns/complaints Physical Exam Vital signs: Vital Signs 02/19/18 12:00 02/19/18 16:00 02/19/18 20:00 Temperature 97.9 F 97.8 F 97.7 F Pulse Rate 80 89 84 Respiratory Rate 18 18 18 Blood Pressure 124/84 160/80 H 145/73 H Pulse Oximetry 98 97 99 02/20/18 00:00 02/20/18 08:00 Temperature 98.4 F 97.7 F Pulse Rate 76 59 L Respiratory Rate 18 18 Blood Pressure 129/68 118/65 Pulse Oximetry 97 95 Intake & Output 02/19/18 02/20/18 02/20/18 18:59 06:59 18:59 Intake Total 1060 / 1060 340 / 340 Balance 1060 / 1060 340 / 340 Weight 81 kg Intake: IV 100 / 100 100 / 100 Cleocin 600 mg/NS Premix 600 mg 100 / 100 100 / 100 In 50 ml @ 100 mls/hr IV.SIG Q6H MARGARITA Rx#:[id number] Oral 960 / 960 240 / 240 Other: # Voids 5 3 Date of Last Bowel Movement 02/19/18 # Bowel Movements 1 Narrative: GENERAL: NAD, AAOx3 SKIN: Induration around the left TMJ, fluctuance and erythema improved from yesterday, purulent/bloody drainage expressed from the incision ENT: OP widely patent, no drooling. Edema of the left ear has lessened. Moist mucous membranes NECK: Supple, trachea midline. No lymphadenopathy. CARDIO: Regular RESP: Breath sounds equal bilaterally. No accessory muscle use. ABD: +BS, soft, non-tender, nondistended. EXT: No cyanosis, or edema. Results - Labs CBC & Chem 7: 02/19/18 03:21 02/19/18 03:21 Microbiology 02/18/18 13:45 Abscess - Incision Gram Stain - Final 02/18/18 13:45 Abscess - Incision Wound Culture - Final S. aureus MRSA Serratia marcescens 02/19/18 10:20 Wound - Neck Gram Stain - Final 02/17/18 14:15 Blood - Peripheral Aerobic Blood Culture - Preliminary No growth in 2 days 02/17/18 14:15 Blood - Peripheral Anaerobic Blood Culture - Preliminary No growth in 2 days 02/17/18 14:10 Blood - Peripheral Aerobic Blood Culture - Preliminary No growth in 2 days 02/17/18 14:10 Blood - Peripheral Anaerobic Blood Culture - Preliminary No growth in 2 days Assessment and Plan - Assessment (1) Localized swelling, mass or lump of neck Code(s): R22.1 - Localized swelling, mass and lump, neck Status: Acute Plan: Abscess vs. hematoma on left neck s/p SCC excision on 02/13/18 - Pt is a 62 y/o male with hypertension and chronic headaches who [place] [facility] [place] for evaluation of swelling to the left neck which began 1 day prior. 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 A few days after the surgery he started noticing swelling which significantly worsened on 02/17. - Pt has been afebrile. - His WBC count at admission was 14.8 -> 12.9 (02/18) -> 9.5 (.) - Soft Tissue Neck CT (02/17/18) 1. 4.5 cm subcutaneous complex collection in the left neck caudal and posterior to the left parotid gland most characteristic of a postsurgical hematoma or developing abscess. 2. Centimeter lymph nodes are identified in the internal jugular and left submandibular regions. 3. No other significant abnormality. - Pt was started on Clindamycin IV in the ED - Consult was placed to maxillofacial surgery. The case was discussed between Dr. Yadav and Dr. Wood as well as Dr. Crowell on 02/18/18 and it was not felt to be appropriate for maxillofacial or plastics per that conversation and recommendation was made to place consult to ENT. The consult was placed to Dr. Ravi Soliz and the case was discussed between he and Dr. Yadav on 02/18/18. Awaiting evaluation by ENT - consult per Dr. Soliz 02/19 recommends: the patient continue the IV antibiotics and after the swelling has gone down substantially, to follow up as an outpatient with Dr. Randi Garcia, his ladle operator who did the surgery. - Pt is on regular diet - Hold aspirin - Cont. his other home medications - Monitor labs and vitals closely - Wound culture from 02/18 growing MRSA and Serratia marcescens, MRSA resistant to Clindamycin. Both MRSA and Serratia marcescens subseptale to Bactrim - Will DC clindamycin and start Bactrim DS PO BID - SCDs for DVT prophylaxis. (2) Post-operative complication Code(s): T81.9XXA - Unspecified complication of procedure, initial encounter Status: Acute - Attending Attestation Patient examined. Assessment and plan formulated with Tabitha Qureshi PA-C. I agree with the above. (2) Post-operative complication Qualifiers: Surgical complication system/body Area: subcutaneous tissue Surgical complication type: unspecified Procedure type: dermatologic Qualified Code(s) : L76.82 - Other postprocedural complications of skin and subcutaneous tissue
[2018-02-20] MEDS: amLODIPine 5 MG Tablet PO SCH (10:45)
[2018-02-20] MEDS: Amitriptyline 10 MG Tablet PO SCH (20:21)
[2018-02-21] MEDS: amLODIPine 5 MG Tablet PO SCH (09:42)
--- NOTE | 2018-02-21 13:47 | P.PNIM ---
Subjective Interval history: Pt has NO new complaints. Pt feels that swelling continues to improve. Physical Exam Vital signs: 02/21/18 08:00 02/21/18 12:00 Temperature 98.0 F 97.6 F Pulse Rate 75 81 Respiratory Rate 16 17 Blood Pressure 113/55 L 128/65 Pulse Oximetry 96 98 Narrative: GENERAL: NAD, AAOx3 SKIN: small amount of swelling around surgical incision site. swelling appears much improved from earlier in the week. ENT: OP widely patent, no drooling. Edema of the left ear has lessened. Moist mucous membranes NECK: Supple, trachea midline. No lymphadenopathy. CARDIO: Regular RESP: Breath sounds equal bilaterally. No accessory muscle use. ABD: +BS, soft, non-tender, nondistended. EXT: No cyanosis, or edema. Results - Labs CBC & Chem 7: 02/19/18 03:21 02/19/18 03:21 Microbiology 02/19/18 10:20 Wound - Neck Gram Stain - Final 02/19/18 10:20 Wound - Neck Wound Culture - Final S. aureus MRSA Serratia marcescens 02/17/18 14:15 Blood - Peripheral Aerobic Blood Culture - Preliminary No growth in 4 days 02/17/18 14:15 Blood - Peripheral Anaerobic Blood Culture - Preliminary No growth in 4 days 02/17/18 14:10 Blood - Peripheral Aerobic Blood Culture - Preliminary No growth in 4 days 02/17/18 14:10 Blood - Peripheral Anaerobic Blood Culture - Preliminary No growth in 4 days - Imaging Soft Tissue Neck CT 02/17/18 14:06 CONCLUSION: 1. 4.5 cm subcutaneous complex collection in the left neck caudal and posterior to the left parotid gland most characteristic of a postsurgical hematoma or developing abscess. 2. Centimeter lymph nodes are identified in the internal jugular and left submandibular regions. 3. No other significant abnormality. Assessment and Plan - Assessment (1) Localized swelling, mass or lump of neck Code(s): R22.1 - Localized swelling, mass and lump, neck Status: Acute Plan: Abscess vs. hematoma on left neck s/p SCC excision on 02/13/18 - Pt is a 62 y/o male with hypertension and chronic headaches who presented to the ED at [facility] [place] on 02/17/18 for evaluation of swelling to the left neck which began 1 day prior. 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 A few days after the surgery he started noticing swelling which significantly worsened on 02/17. - Pt has been afebrile. - His WBC count at admission was 14.8 -> 12.9 (02/18) -> 9.5 (.) - Soft Tissue Neck CT (02/17/18) 1. 4.5 cm subcutaneous complex collection in the left neck caudal and posterior to the left parotid gland most characteristic of a postsurgical hematoma or developing abscess. 2. Centimeter lymph nodes are identified in the internal jugular and left submandibular regions. 3. No other significant abnormality. - Pt was started on Clindamycin IV in the ED - Consult was placed to maxillofacial surgery. The case was discussed between Dr. Yadav and Dr. Wood as well as Dr. Crowell on 02/18/18 and it was not felt to be appropriate for maxillofacial or plastics per that conversation and recommendation was made to place consult to ENT. The consult was placed to Dr. Ravi Soliz and the case was discussed between he and Dr. Yadav on 02/18/18. Awaiting evaluation by ENT - consult per Dr. Soliz 02/19 recommends: the patient continue the IV antibiotics and after the swelling has gone down substantially, to follow up as an outpatient with Dr. Randi Garcia, his bag grader who did the surgery. - Case d/w Dr. Garcia by phone (02/20). - Dr. Garcia requested removal of superficial sutures. I removed all visible sutures. - Pt continues to improve. - Swelling now confined to immediate surgical site. Small amount of sanguinous fluid expressed with pressure. - In view of the amount of swelling upon admission, MRSA abscess, and risk for potential readmission, I will keep Mr. Hatfield in the hospital one more night and review his case 02/22/18. - I anticipate discharge to home 02/22/18 - Continue PO Bactrim - Hold aspirin - SCDs for DVT prophylaxis. (2) Post-operative complication Code(s): T81.9XXA - Unspecified complication of procedure, initial encounter Status: Acute (2) Post-operative complication Qualifiers: Surgical complication system/body Area: subcutaneous tissue Surgical complication type: unspecified Procedure type: dermatologic Qualified Code(s) : L76.82 - Other postprocedural complications of skin and subcutaneous tissue
[2018-02-21] MEDS: Amitriptyline 10 MG Tablet PO SCH (21:05)
--- NOTE | 2018-02-22 08:48 | P.DS ---
<Tabitha Qureshi - Last Filed: 02/22/18 12:27> Date of admission: 02/17/18 19:55 Primary care physician: Toney Mcclain MD Attending physician on discharge: Jeremías Yadav Anticipated date of discharge: 02/22/18 Brief History from admission: This is a pleasant 62-year-old male with a history of hypertension, chronic headaches who presents to the emergency department for evaluation of swelling to the left neck beginning 5 days prior. 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 This morning he noticed his left ear was also swelling, so he presented to the ER. He does take a baby aspirin a day. He denies any difficulty swallowing or drooling. Denies any pain to the jaw or neck. Denies any fever, or drainage from the incision. DS: Diagnosis - Discharge Diagnosis (1) Localized swelling, mass or lump of neck Status: Acute (2) Post-operative complication Status: Acute DS: Medications - Discharge Medications Prescriptions: sulfamethoxazole-trimethoprim 1 tab PO Q12HR 8 Days tab DS: Summary Hospital Course: Abscess vs. hematoma on left neck s/p SCC excision on 02/13/18 - Pt is a 62 y/o male with hypertension and chronic headaches who presented to the ED at [facility] [place] on 02/17/18 for evaluation of swelling to the left neck which began 1 day prior. 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 A few days after the surgery he started noticing swelling which significantly worsened on 02/17. - Pt has been afebrile. - His WBC count at admission was 14.8 -> 12.9 (02/18) -> 9.5 (8.) - Soft Tissue Neck CT (02/17/18) 1. 4.5 cm subcutaneous complex collection in the left neck caudal and posterior to the left parotid gland most characteristic of a postsurgical hematoma or developing abscess. 2. Centimeter lymph nodes are identified in the internal jugular and left submandibular regions. 3. No other significant abnormality. - Pt was started on Clindamycin IV in the ED - Consult was placed to maxillofacial surgery. The case was discussed between Dr. Yadav and Dr. Wood as well as Dr. Crowell on 02/18/18 and it was not felt to be appropriate for maxillofacial or plastics per that conversation and recommendation was made to place consult to ENT. The consult was placed to Dr. Ravi Soliz and the case was discussed between he and Dr. Yadav on 02/18/18. Awaiting evaluation by ENT - consult per Dr. Soliz 02/19 recommends: the patient continue the IV antibiotics and after the swelling has gone down substantially, to follow up as an outpatient with Dr. Randi Garcia, his corn shredder who did the surgery. - Case d/w Dr. Garcia by phone (02/20). - Dr. Garcia requested removal of superficial sutures. Dr. Yadav removed all visible sutures. - Pt continues to improve. - Swelling now confined to immediate surgical site. Small amount of sanguinous fluid expressed with pressure. - In view of the amount of swelling upon admission, MRSA abscess, and risk for potential readmission, I will keep Mr. Hatfield in the hospital one more night and review his case 02/22/18. - Continue PO Bactrim - Hold aspirin - SCDs for DVT prophylaxis. - Time Spent with Patient Total time spent providing and/or coordinating discharge services: Greater than 30 minutes - Quality: VTE Deep Vein Thrombosis/Pulmonary Embolism Present on Admission: No Exam Vital signs: Vital Signs 02/21/18 12:00 02/21/18 16:00 02/21/18 20:00 Temperature 97.6 F 98.0 F 97.6 F Pulse Rate 81 83 78 Respiratory Rate 17 18 18 Blood Pressure 128/65 133/69 126/68 Pulse Oximetry 98 96 96 02/22/18 00:00 Temperature 97.9 F Pulse Rate 91 H Respiratory Rate 20 Blood Pressure 152/74 H Pulse Oximetry 100 Intake & Output 02/21/18 02/22/18 02/22/18 18:59 06:59 18:59 Intake Total 740 / 740 Output Total 740 / 740 Balance 0 / 0 Weight 80.6 kg Intake: Oral 740 / 740 Output: Urine 740 / 740 Other: # Voids 2 Date of Last Bowel Movement 02/20/18 # Bowel Movements 0 Narrative: GENERAL: NAD, AAOx3 SKIN: small amount of swelling around surgical incision site. swelling appears much improved from earlier in the week. ENT: OP widely patent, no drooling. Edema of the left ear has lessened. Moist mucous membranes NECK: Supple, trachea midline. No lymphadenopathy. CARDIO: Regular RESP: Breath sounds equal bilaterally. No accessory muscle use. ABD: +BS, soft, non-tender, nondistended. EXT: No cyanosis, or edema. Results Procedures completed during hospitalization: none Labs on day of discharge: Preliminary micro results at discharge 02/17/18 14:15 Aerobic Blood Culture - Preliminary Blood - Peripheral No growth in 4 days Anaerobic Blood Culture - Preliminary No growth in 4 days 02/17/18 14:10 Aerobic Blood Culture - Preliminary Blood - Peripheral No growth in 4 days Anaerobic Blood Culture - Preliminary No growth in 4 days - Impressions ITS Impressions Soft Tissue Neck CT 02/17/18 14:06 CONCLUSION: 1. 4.5 cm subcutaneous complex collection in the left neck caudal and posterior to the left parotid gland most characteristic of a postsurgical hematoma or developing abscess. 2. Centimeter lymph nodes are identified in the internal jugular and left submandibular regions. 3. No other significant abnormality. <Jeremías Yadav - Last Filed: 02/24/18 16:11> Date of admission: 02/17/18 19:55 Primary care physician: Toney Mcclain MD DS: Diagnosis - Discharge Diagnosis (1) Localized swelling, mass or lump of neck Status: Acute (2) Post-operative complication Status: Acute DS: Summary Hospital Course: Patient examined. Assessment and plan formulated with Tabitha Qureshi PA-C. I agree with the above. - Time Spent with Patient Total time spent providing and/or coordinating discharge services: Results - Impressions ITS Impressions Soft Tissue Neck CT 02/17/18 14:06 CONCLUSION: 1. 4.5 cm subcutaneous complex collection in the left neck caudal and posterior to the left parotid gland most characteristic of a postsurgical hematoma or developing abscess. 2. Centimeter lymph nodes are identified in the internal jugular and left submandibular regions. 3. No other significant abnormality. Discharge Plan - Discharge Order Discharge Orders: Discharge Order (Routine); Ordered 02/22/18 Ordered By: Tabitha Qureshi - Discharge Details Anticipated Discharge Date: 02/22/18 - Physicians Team Primary Care Provider: Toney Mcclain Attending Provider: Jeremías Yadav Other Providers: Ravi Soliz MD ; [facility]
[2018-02-22] MEDS: amLODIPine 5 MG Tablet PO SCH (09:35)
== END 2018-02-22 15:26 | disposition home or self-care (01) ==
LOC: NEDA 13:13 → NEPC 13:13 → N07 21:30
PROVIDERS: ADMIT Hospitalist; ATTEND Hospitalist